=== PATIENT | male | born 1980 | race Caucasian/White ===

== ENCOUNTER 2021-10-09 13:49 | Emergency (ER) | payer OTHER ==
[~2021-10-09] VITALS: Ht 177.8 cm; Wt 93.0 kg
[~2021-10-09 13:49] MED LIST: ALBU90OI INH; TRAM50 PO
== END 2021-10-09 15:43 | disposition home or self-care (01) ==
LOC: ER 13:49
DX: M54.2 Cervicalgia (principal); V89.2XXA Person injured in unspecified motor-vehicle accident, traffic, initial encounter
CPT/HCPCS: 72070; 99283-25